=== PATIENT | female | born 1990 | race Caucasian/White ===

== ENCOUNTER 2017-07-10 03:01 | Inpatient (IN) | payer OTHER ==
[~2017-07-10 03:01] MED LIST: Buffered Lidocaine 0.9% SYRIN* 5 ML/SYR SYRINGE INTRADERM ONE; ceFOXitin(*) 2 GM in NS 0.9% 50 ML* 50 ML IVPB SCH
[2017-07-10] MEDS ORDERED: Sodium Citrate/Citric Acid* 15 ML UDC PO ONE ×2 (06:00)
[2017-07-10] MEDS ORDERED: Famotidine IV* 10 MG/ML 2 ML (20 mg) IV ONE ×2 (06:00)
[2017-07-10] MEDS ORDERED: Morphine PF AMP (0.5MG/ML)* 5 MG/10 ML AMP ONE (09:39)
[2017-07-10] MEDS ORDERED: Dexamethasone IV* 4 MG/ML 1 ML (4 MG) ONE (09:40)
[2017-07-10] MEDS ORDERED: Ondansetron INJ* 2 MG/ML VIAL ONE (09:40)
[2017-07-10] MEDS ORDERED: OXYTOCIN* 10 UNITS/ML 1 ML VIAL ONE (09:40)
[2017-07-10] MEDS ORDERED: fentaNYL* 50 MCG/ML 2 ML VIAL (100 MCG VIAL) IV PRN (11:15)
[2017-07-10] MEDS ORDERED: DiMENhydriNATE IV* 50 MG/ML VIAL IV PUSH PRN (11:15)
[2017-07-10] MEDS ORDERED: Nalbuphine* 20 MG/ML 1 ML VIAL IV PRN ×2 (11:15)
[2017-07-10] MEDS ORDERED: oxyCODONE/Acetamin 5/325 MG* TAB PO PRN ×2 (11:15)
[2017-07-10] MEDS ORDERED: Naloxone* 0.4 MG/ML 1 ML VIAL IV PRN ×2 (11:15)
[2017-07-10] MEDS ORDERED: Witch Hazel PAD* JAR TOPICAL PRN (12:29)
[2017-07-10] MEDS: Ibuprofen TAB* 600 MG PO SCH ×2 (12:34→18:48)
[2017-07-10] MEDS ORDERED: TRIUMEQ PO SCH (12:45)
[2017-07-10] MEDS: Ondansetron INJ* 2 MG/ML VIAL IV PRN ×2 (15:25→22:53)
[2017-07-10] MEDS: Simethicone TAB* 80 MG TAB.CHEW PO SCH ×3 (16:40→22:56)
[2017-07-10] MEDS: Docusate CAP* 100 MG PO SCH (16:46)
[2017-07-10] MEDS: Ketorolac INJ* 30 MG/ML 1 ML VIAL IV PRN (18:33)
[2017-07-10] MEDS: TRIUMEQ PO SCH (22:56)
[2017-07-10] MEDS ORDERED: Scopolamine 1.5 mg* PATCH TRANSDERM SCH (23:00)
[2017-07-11] MEDS ORDERED: oxyCODONE/Acetamin 5/325 MG* TAB PO PRN ×2 (03:15)
[2017-07-11] MEDS: Docusate CAP* 100 MG PO SCH ×4 (03:28→21:43)
[2017-07-11] MEDS: Ketorolac INJ* 30 MG/ML 1 ML VIAL IV PRN (04:12)
[2017-07-11 06:42] LABS: Hematocrit 33 % (35-47); Hemoglobin 11.3 g/dl (12.0-16.0); Mean Corpuscular HGB Conc 34 g/dl (31-36); Mean Corpuscular Hemoglobin 34 pg (27-31); Mean Corpuscular Volume 99 fL (80-97); Mean Platelet Volume 9 um3 (7.4-10.4); Platelet Count 267 10^3/ul (150-450); Red Blood Count 3.37 10^6/ul (4.0-5.4); Red Cell Distribution Width 15 % (10.5-15); White Blood Count 21.5 10^3/ul (3.5-10.8)
[2017-07-11 06:44] LABS: ABS Basophils 0.2 10^3/ul (0-0.2); ABS Eosinophils 0.1 10^3/ul (0-0.6); ABS Lymphocytes 4.5 10^3/ul (1.0-4.8); ABS Monocytes 1.6 10^3/ul (0-0.8); ABS Nucleated RBC 0 10^3/ul; Eosinophil % 0.5 % (0-6); Lymphocyte % 21.2 % (25-47); Nucleated Red Blood Cells % 0
[2017-07-11] MEDS: Ibuprofen TAB* 600 MG PO SCH ×4 (07:18→21:43)
[2017-07-11] MEDS: Simethicone TAB* 80 MG TAB.CHEW PO SCH ×4 (08:44→21:43)
[2017-07-11] MEDS ORDERED: Ferrous Gluconate TAB* 324 MG TAB PO SCH (09:00)
--- NOTE | 2017-07-11 13:03 | OP ---
OPERATIVE REPORT: DATE OF OPERATION: 07/10/17 DATE OF : 89 SURGEON: Ronnell Miller MD TAX EXAMINER: [employer] media marketing specialist. ANESTHESIOLOGIST: Dr. Parada. ANESTHESIA: Spinal. PRE-OP DIAGNOSIS: 39 weeks' gestation with history of previous and HIV positive. POST-OP DIAGNOSIS: 39 weeks' gestation with history of previous and HIV positive. OPERATIVE PROCEDURE: Repeat low transverse section. ESTIMATED BLOOD LOSS: 600 cc. URINE OUTPUT: 100 cc. IV FLUIDS: 1900 cc lactated Ringer's. MATERIALS TO LAB: Cord blood. INDICATIONS: This patient was a 26-year-old 2, para 1 with a history of a prior . The patient desired to have a repeat section. The patient has a history of HIV which has been well treated using combined therapy. The patient's viral load has been undetectable, so pretreatment with antivirals before surgery was not indicated. She was extensively counseled for the surgery and consent was signed. FINDINGS: Normal appearing uterus, fallopian tubes and ovaries. Delivery was productive of a 6-pound 8-ounce female with Apgars of 9 and 9. Time of delivery was 10:57. COMPLICATIONS: None. DESCRIPTION OF PROCEDURE: The risks, benefits, and alternatives were described to the patient, and informed consent was obtained. The patient was taken to the operating room with IV running, where spinal anesthesia was induced and found to be adequate. The patient was prepped and draped in normal sterile fashion in the dorsal supine position with a leftward tilt. A Pfannenstiel skin incision was made with a scalpel through the patient's previous incision. This was carried down to the underlying fascia using the scalpel. The fascia was scored in the midline, and the incision was extended using Trinidad scissors. The fascia was dissected off the underlying rectus muscles using blunt and sharp dissection. The rectus muscles were in the midline using dissection with a Olya clamp. The peritoneum was then entered bluntly. A bladder blade was placed. A bladder flap was created sharply using Metzenbaum scissors. A low transverse uterine incision was then made with the scalpel. This was carried down to the amniotic membranes. The membranes were then ruptured, productive of clear fluid. The uterine incision was extended using blunt traction. The head was elevated to the level of the incision, and, with fundal pressure, the head delivered without difficulty. The shoulders then were also both delivered and the body followed. The had excellent tone and cried immediately on delivery. The cord was doubly clamped and cut. The was then handed to the awaiting trauma doctor. Cord blood was collected. The placenta was delivered with manual extraction. The uterus was then exteriorized and cleared of all clots and debris. The uterine incision was then reapproximated using 0 Polysorb in a running-locked fashion. A second layer of imbricating 0 Polysorb sutures was then also placed for good hemostasis. The posterior cul-de-sac was irrigated with saline. The uterus was then returned to the abdomen. The incision was reinspected and still noted to be hemostatic. The peritoneum was closed with 3-0 Polysorb in a running fashion. The fascia was closed with 0 Polysorb in a running fashion. The subcutaneous tissues were copiously irrigated and made hemostatic using the Bovie. The skin was then closed with 4-0 Monocryl in a subcuticular stitch. A sterile bandage was then placed over the incision. The patient tolerated the procedure well. Sponge, lap, and needle counts were correct x2. [id number]/[facility] #: [id number] [facility]
[2017-07-11] MEDS: TRIUMEQ PO SCH (21:43)
[2017-07-12] MEDS: Ibuprofen TAB* 600 MG PO SCH ×2 (06:11→12:43)
[2017-07-12 08:35] VITALS: BP 102/67
[2017-07-12] MEDS: Simethicone TAB* 80 MG TAB.CHEW PO SCH ×2 (09:30→12:43)
[2017-07-12] MEDS: Docusate CAP* 100 MG PO SCH (09:30)
[2017-07-13] MEDS ORDERED: Scopolamine PATCH Remove* 1 NOTE MISC PATCH OFF SCH (23:00)
== END 2017-07-12 13:38 | disposition home or self-care (01) | DRG 540 ==
LOC: MCHOB 03:01 → UNDOADMIN 03:01 → MCHOB 07:23
PROVIDERS: ADMIT Obstetrics & Gynecology; ATTEND Obstetrics & Gynecology
PROC: 10D00Z1 Extraction of Products of Conception, Low, Open Approach (ICD-10-PCS; principal; 2017-07-10 09:30)
DX: O34.211 Maternal care for low transverse scar from previous cesarean delivery (principal); O98.72 Human immunodeficiency virus [HIV] disease complicating childbirth; O99.334 Smoking (tobacco) complicating childbirth; F17.210 Nicotine dependence, cigarettes, uncomplicated; Z3A.39 39 weeks gestation of pregnancy; Z37.0 Single live birth; Z21 Asymptomatic human immunodeficiency virus [HIV] infection status
CPT/HCPCS: 36415; 85025; A9270-GY; J0694; J1100; J1240; J1885; J2300; J2405; J2590

== ENCOUNTER 2017-11-17 13:49 | Emergency (ER) | payer OTHER ==
[2017-11-17 14:19] VITALS: BP 119/71
--- NOTE | 2017-11-17 14:32 | UC ---
Dental HPI - HPI Summary HPI Summary: dental pain x 2 days. left wisdom tooth chipped tooth, now the area is very painful going to see her dentist on Monday no fever - History of Current Complaint Chief Complaint: UCDentalProblem Stated Complaint: DENTAL COMPLAINT Time Seen by Provider: 11/17/17 14:08 Hx Obtained From: Patient Hx Last Menstrual Period: unknown Onset/Duration: Sudden Onset, Lasting Days - 2, Still Present Severity: Moderate Pain Intensity: 6 Aggravating Factor(s): Cold, Chewing Alleviating Factor(s): Nothing Dental: 1 - broken Molar, - Allergies/Home Medications Allergies/Adverse Reactions: Allergies Allergy/AdvReac Type Severity Reaction Status Date / Time No Known Allergies Allergy Verified 11/17/17 14:09 Home Medications: Home Medications Abacavir/Dolutegravir/Lamivudi [Triumeq Tablet (Nf)] 1 tab PO DAILY 11/17/17 [ History Confirmed 11/17/17] hydrOXYzine HCL TAB* [Atarax 25 MG TAB*] 25 mg PO BEDTIME PRN 11/17/17 [History Confirmed 11/17/17] medroxyPROGESTERone ACETATE* [DEPO-Provera] 150 mg IM ONCE 11/17/17 [History Confirmed 11/17/17] PMH/Surg Hx/FS Hx/Imm Hx Previously Healthy: Yes Other History Of: HIV - Surgical History Surgical History: Yes Surgery Procedure, Year, and Place: x 2 - Family History Known Family History: Negative: Cardiac Disease - Social History Alcohol Use: Occasionally Substance Use Type: None Smoking Status (MU): Heavy Every Day Tobacco Smoker Type: Cigarettes Amount Used/How Often: 1 PPD Have You Smoked in the Last Year: Yes Household Exposure Type: Cigarettes - Immunization History Most Recent Influenza Vaccination: declined Most Recent Tetanus Shot: na Most Recent Pneumonia Vaccination: na Review of Systems Constitutional: Negative Skin: Negative Eyes: Negative ENT: Dental Pain Respiratory: Negative Is Patient Immunocompromised?: No All Other Systems Reviewed And Are Negative: Yes Physical Exam Triage Information Reviewed: Yes Appearance: Well-Appearing, No Pain Distress, Well-Nourished Vital Signs: Initial Vital Signs Temp 98.7 F 11/17/17 14:12 Pulse 97 11/17/17 14:12 Resp 14 11/17/17 14:12 BP 119/71 11/17/17 14:12 Pulse Ox 100 11/17/17 14:12 Vital Signs Reviewed: Yes Eye Exam: Normal Eyes: Positive: Conjunctiva Clear ENT: Positive: Normal ENT inspection, Hearing grossly normal, Pharynx normal, Nasal congestion, Nasal drainage Dental: Positive: Gross Decay/Caries @ - #17,, Dental Fracture @ - #17 Neck: Positive: Supple, Nontender, No Lymphadenopathy Respiratory: Positive: Chest non-tender, Lungs clear, Normal breath sounds, No respiratory distress Cardiovascular Exam: Normal Cardiovascular: Positive: RRR, No Murmur, Pulses Normal Skin Exam: Normal Dental Complaint Course/Dx - Differential Dx/Diagnosis Provider Diagnoses: dental pain Discharge - Sign-Out/Discharge Documenting (check all that apply): Patient Departure - Discharge Plan Condition: Stable Disposition: HOME Prescriptions: Acetaminophen with Codeine [Acetaminophen/Codeine Jay 300-30 mg] 1 tab PO Q6HR PRN #12 tab MDD 4 PRN Reason: Pain Amoxicillin PO (*) [Amoxicillin 875 MG (*)] 875 mg PO BID #20 tab Patient Education Materials: Toothache (ED) Referrals: Christy Bruce MD [Primary Care Provider] - - Billing Disposition and Condition Condition: STABLE Disposition: Home
== END 2017-11-17 14:44 | disposition home or self-care (01) ==
LOC: UCCORT 13:49
DX: K08.89 Other specified disorders of teeth and supporting structures (principal); Z21 Asymptomatic human immunodeficiency virus [HIV] infection status; F17.210 Nicotine dependence, cigarettes, uncomplicated
CPT/HCPCS: 99212; G0463

== ENCOUNTER 2018-08-14 10:57 | Emergency (ER) | payer OTHER ==
[2018-08-14 11:38] VITALS: BP 105/68
--- NOTE | 2018-08-14 11:59 | UC ---
Ear Complaint HPI - HPI Summary HPI Summary: Patient has had cold symptoms with a right earache over the past 4 days. - History of Current Complaint Chief Complaint: UCGeneralIllness Stated Complaint: CONGESTION, RIGHT EAR PAIN Time Seen by Provider: 08/14/18 11:58 Hx Obtained From: Patient Hx Last Menstrual Period: iud ?: No Onset/Duration: Gradual Onset Severity Initially: Mild Severity Currently: Mild Pain Intensity: 3 Aggravating Factors: Nothing Associated Signs/Symptoms: Positive: URI Symptoms - Allergies/Home Medications Allergies/Adverse Reactions: Allergies Allergy/AdvReac Type Severity Reaction Status Date / Time amoxicillin AdvReac Severe severe Verified 08/14/18 11:27 muscle fatigue Home Medications: Home Medications Copper (Iud) [Paragard IUD] 1 unit IU ONCE 08/14/18 [History Confirmed 08/14/18] Ibuprofen TAB* [Advil TAB*] 200 mg PO Q6H PRN 08/14/18 [History Confirmed ] busPIRone TAB* [Buspar TAB*] 5 mg PO TID 08/14/18 [History Confirmed 08/14/18] PMH/Surg Hx/FS Hx/Imm Hx Previously Healthy: Yes Other History Of: HIV - Surgical History Surgical History: Yes Surgery Procedure, Year, and Place: x 2 - Family History Known Family History: Negative: Cardiac Disease - Social History Alcohol Use: Rare Substance Use Type: None Smoking Status (MU): Heavy Every Day Tobacco Smoker Type: Cigarettes Amount Used/How Often: 1/2 PPD Length of Time of Smoking/Using Tobacco: since age 14 Have You Smoked in the Last Year: Yes Household Exposure Type: Cigarettes - Immunization History Most Recent Influenza Vaccination: declined Most Recent Tetanus Shot: na Most Recent Pneumonia Vaccination: na Review of Systems All Other Systems Reviewed And Are Negative: Yes ENT: Positive: Ear Ache - Right earache for 4 days Is Patient Immunocompromised?: No Physical Exam Triage Information Reviewed: Yes Appearance: Well-Appearing, No Pain Distress, Well-Nourished Vital Signs: Initial Vital Signs Temp 98.3 F 08/14/18 11:31 Pulse 87 08/14/18 11:31 Resp 24 08/14/18 11:31 BP 105/68 08/14/18 11:31 Pulse Ox 100 08/14/18 11:31 Vital Signs Reviewed: Yes Eye Exam: Normal ENT: Positive: TM red - Right tympanic membrane is erythematous with mild bulging with poor landmarks, left TM is pearly avelar with good landmarks and light reflex. Neck exam: Normal Neck: Positive: Supple, Nontender, No Lymphadenopathy Respiratory: Positive: Lungs clear, Normal breath sounds, No respiratory distress, No accessory muscle use Cardiovascular Exam: Normal Abdominal Exam: Normal Bowel Sounds: Positive: Present Musculoskeletal Exam: Normal Neurological Exam: Normal Psychological Exam: Normal Skin Exam: Normal Ear Complaint Course/Dx - Course Course Of Treatment: Patient has been comfortable here. Her exam is consistent with a right otitis media. Because she is allergic to amoxicillin and a Z-Luca will have an adverse reaction because medication she takes I am going to start her on Cefdinir. - Differential Dx/Diagnosis Provider Diagnosis: Otitis media Discharge - Sign-Out/Discharge Documenting (check all that apply): Patient Departure All imaging exams completed and their final reports reviewed: No Studies - Discharge Plan Condition: Fair Disposition: HOME Prescriptions: Cefdinir cap* [Cefdinir 300 MG cap (NF)] 300 mg PO BID 10 Days #20 cap Patient Education Materials: Ear Infection (ED) Referrals: No Primary Care Phys,NOPCP [Primary Care Provider] - [facility] [Outside] Additional Instructions: Increase fluids, Tylenol or Motrin for pain. Take the antibiotic for the full 10 days. - Billing Disposition and Condition Condition: FAIR Disposition: Home - Attestation Statements Provider Attestation: I was available for consult. This patient was seen by the [facility]. The patient was not presented to, seen by, or examined by me. -Chaitanya
== END 2018-08-14 12:14 | disposition home or self-care (01) ==
LOC: UCCORT 10:57
DX: H66.90 Otitis media, unspecified, unspecified ear (principal); F17.210 Nicotine dependence, cigarettes, uncomplicated; Z88.3 Allergy status to other anti-infective agents
CPT/HCPCS: 99212; G0463